=== PATIENT | female | born 1940 | race Caucasian/White ===

== ENCOUNTER → 2016-09-14 | Outpatient (CLI) | payer MEDICARE ==
[2014-10-15 05:30] VITALS: BP 113/60
[~2016-09-14] MED LIST: ACET325T9 PO; ASPI-252 PO; CELE200C PO; FERR325T58 PO; HYDR-2762 PO; IBUP-1060 PO
--- NOTE | 2016-09-14 17:03 | KCIC ---
PROCEDURE Chest, two views. HISTORY Cough. FINDINGS Frontal and lateral views of the chest are obtained. There is no infiltrate, effusion or pneumothorax. The heart is normal in size. There is a reverse right shoulder arthroplasty. There are degenerative changes involving the left shoulder with decreased subacromial space in suspected joint loose bodies. IMPRESSION No acute pulmonary finding. Electronically signed by: Kiki Schultz (Sep 14, 2016 17:01:01)
== END | disposition home or self-care (01) ==
LOC: KCIC 14:33
PROVIDERS: ATTEND Physician Assistant
DX: R05 Cough (principal); Z87.891 Personal history of nicotine dependence
CPT/HCPCS: 71020

== ENCOUNTER 2016-10-08 11:01 | Inpatient (IN) | payer MEDICARE ==
[2016-10-08] VITALS (10 sets, daily range): BP systolic 98–144; BP diastolic 42–72
[~2016-10-08] VITALS: Ht 170.2 cm; Wt 80.7 kg
[2016-10-08] MEDS ORDERED: FENTANYL PF 100 MCG/2 ML VIAL. ONE ×2 (11:27→15:33)
[2016-10-08] MEDS ORDERED: FENTANYL PF 100 MCG/2 ML VIAL. IV ONE ×2 (11:30→12:45)
[2016-10-08 12:01] LABS: BASO # 0.1 x10^3/uL (0.0-0.2); BASO % 1 % (0-3); EOS % 1 % (0-3); HEMATOCRIT 36.2 % (36.0-47.0); HEMOGLOBIN 11.9 g/dL (12.0-15.5); LYMPH # 1.3 x10^3/uL (1.0-4.8); LYMPH % 12 % (24-48); MEAN CORPUSCULAR HEMOGLOBIN 29 pg (25-35); MEAN CORPUSCULAR HGB CONC 33 g/dL (31-37); MEAN CORPUSCULAR VOLUME 87 fL (79-100); MONO % 5 % (0-9); NEUT % 82 % (31-73); PLATELET COUNT 321 x10^3/uL (140-400); RED BLOOD COUNT 4.16 x10^6/uL (3.50-5.40); RED CELL DISTRIBUTION WIDTH 14.9 % (11.5-14.5); WHITE BLOOD COUNT 11.3 x10^3/uL (4.0-11.0)
[2016-10-08] MEDS: FENTANYL PF 100 MCG/2 ML VIAL. IV PRN ×2 (12:05→14:37)
[2016-10-08 12:12] LABS: CALCIUM 9.3 mg/dL (8.5-10.1); CREATININE 0.7 mg/dL (0.6-1.0); GFR 81.6
[2016-10-08 12:18] LABS: ALBUMIN 3.9 g/dL (3.4-5.0); ALBUMIN/GLOBULIN RATIO 1.1 (1.0-1.7); TOTAL BILIRUBIN 0.2 mg/dL (0.2-1.0); TOTAL PROTEIN 7.5 g/dL (6.4-8.2)
--- NOTE | 2016-10-08 12:26 | RAD ---
EXAM: Right hip, 2 views. HISTORY: Dislocation. COMPARISON: 11/30/2015. FINDINGS: A frontal view of the pelvis and lateral view the right hip are obtained. There is a superior right hip arthroplasty dislocation. No periprosthetic fracture is seen. There is a left hip arthroplasty in expected position. There is degenerative change at the lumbosacral junction. IMPRESSION: Right hip arthroplasty dislocation.
[2016-10-08] MEDS ORDERED: MIDAZOLAM HCL/PF 5 MG/5 ML VIAL. IV ONE (12:45)
--- NOTE | 2016-10-08 12:46 | PHYS DOC ---
Past Medical History Past Medical History: Other Past Surgical History: Hip Replacement, Other Additional Past Surgical Histo: R shoulder, bilat hip Adult General Chief Complaint Chief Complaint: HIP dislocation HPI HPI Patient is a 75 year old female brought by EMS from home with the complaint of right hip dislocation. Patient has a prosthetic right hip since 2009 and states that she has had repeated hip dislocations. She did not have a fall, she just stood up. Patient had her original surgery in 2009, a few weeks later shE bent over and had hip dislocation, shortly after that, a repeat dislocation from standing up from a sitting position. Then she went 5 years without a hip dislocation, had last one in November 2015, and believes that her hip is again dislocated today. The last time she had a hip dislocation she was in [facility]. She wore the brace that had been previously supplied to her for 3 months after that dislocation, and has been doing well for several months now. Orthopedic surgeon Dr. Rivera Review of Systems Review of Systems Constitutional: Denies fever or chills [] Eyes: Denies change in visual acuity, redness, or eye pain [] HENT: Denies nasal congestion or sore throat [] Respiratory: Denies cough or shortness of breath [] Cardiovascular: Denies chest pain GI: Denies abdominal pain, nausea, vomiting, bloody stools or diarrhea [] : Denies dysuria or hematuria [] Musculoskeletal: As in history of present illness Integument: Denies rash or skin lesions [] Neurologic: Denies headache, focal weakness or sensory changes [] Current Medications Current Medications Current Medications Medications (Trade) Dose Ordered Sig/Sudhir Start Time Stop Time Status Last Admin Dose Admin Fentanyl Citrate (Fentanyl 2ml Vial) 100 mcg 1X ONCE 10/08/16 12:45 10/08/16 12:46 DC 10/08/16 12:55 100 MCG Midazolam HCl 5 mg 5 mg 1X ONCE 10/08/16 12:45 10/08/16 12:46 DC 10/08/16 12:58 5 MG Propofol (Diprivan) 0 ml @ As Directed STK-MED ONCE 10/08/16 13:22 10/08/16 13:23 DC Allergies Allergies Allergies Coded Allergies Type Severity Reaction Last Updated Verified No Known Drug Allergies 10/15/14 No Physical Exam Physical Exam Constitutional: Well developed, well nourished, no acute distress, non-toxic appearance. Alert, mentating normally. HENT: Normocephalic, bilateral external ears normal, oropharynx moist, no oral exudates, nose normal. [] Eyes: conjunctiva normal, no discharge. [] Neck: Normal range of motion, no stridor. [] Cardiovascular:Heart rate regular rhythm, no murmur [] Lungs & Thorax: Bilateral breath sounds clear to auscultation [] Abdomen: soft, no tenderness, no masses, no pulsatile masses. [] Skin: Warm, dry, no erythema, no rash. [] Extremities: Upper extremities unremarkable. Right lower extremity shortened with deformity at the level of the hip. Neurologic: Alert and oriented X 3, normal motor function, normal sensory function, no focal deficits noted. [] Current Patient Data Vital Signs Vital Signs Date Time Temp Pulse Resp B/P Pulse Ox O2 Delivery O2 Flow Rate FiO2 10/08/16 12:55 18 100 Nasal Cannula 8.0 10/08/16 11:10 98.0 87 206/86 98.0 Lab Values Laboratory Tests Test 10/08/16 11:15 White Blood Count 11.3x10^3/uL (4.0-11.0) H Red Blood Count 4.16x10^6/uL (3.50-5.40) Hemoglobin 11.9g/dL (12.0-15.5) L Hematocrit 36.2% (36.0-47.0) Mean Corpuscular Volume 87fL (79-100) Mean Corpuscular Hemoglobin 29pg (25-35) Mean Corpuscular Hemoglobin Concent 33g/dL (31-37) Red Cell Distribution Width 14.9% (11.5-14.5) H Platelet Count 321x10^3/uL (140-400) Neutrophils (%) (Auto) 82% (31-73) H Lymphocytes (%) (Auto) 12% (24-48) L Monocytes (%) (Auto) 5% (0-9) Eosinophils (%) (Auto) 1% (0-3) Basophils (%) (Auto) 1% (0-3) Neutrophils # (Auto) 9.2x10^3uL (1.8-7.7) H Lymphocytes # (Auto) 1.3x10^3/uL (1.0-4.8) Monocytes # (Auto) 0.6x10^3/uL (0.0-1.1) Eosinophils # (Auto) 0.1x10^3/uL (0.0-0.7) Basophils # (Auto) 0.1x10^3/uL (0.0-0.2) Sodium Level 140mmol/L (136-145) Potassium Level 4.0mmol/L (3.5-5.1) Chloride Level 105mmol/L (98-107) Carbon Dioxide Level 27mmol/L (21-32) Anion Gap 8 (6-14) Blood Urea Nitrogen 17mg/dL (7-20) Creatinine 0.7mg/dL (0.6-1.0) Estimated GFR (Cockcroft-Gault) 81.6 BUN/Creatinine Ratio 24 (6-20) H Glucose Level 121mg/dL (70-99) H Calcium Level 9.3mg/dL (8.5-10.1) Total Bilirubin 0.2mg/dL (0.2-1.0) Aspartate Amino Transferase (AST) 15U/L (15-37) Alanine Aminotransferase (ALT) 22U/L (14-59) Alkaline Phosphatase 58U/L (46-116) Total Protein 7.5g/dL (6.4-8.2) Albumin 3.9g/dL (3.4-5.0) Albumin/Globulin Ratio 1.1 (1.0-1.7) Laboratory Tests 10/08/16 11:15 Laboratory Tests 10/08/16 11:15 EKG EKG [] Radiology/Procedures Radiology/Procedures Two-view x-ray of the right hip and AP pelvis read by me. Superior dislocation of the right hip total joint. Procedure: Closed reduction right hip I explained the plan to the patient for IV sedation and attempted closed reduction of the right hip, she consented. Time out was done. IV fentanyl and IV Versed was given. The patient was monitored appropriately. She was deeply sedated and did require some assistance with bag valve mask for part of the procedure. Dr. Francois was in the room at bedside and performing airway management while I attempted reduction. My attempt was unsuccessful so he and I traded positions and I managed the patient's airway while he attempted reduction. We were questioning whether there may have been a click so x-rays were repeated but the repeat films show persistent superior dislocation of the prosthetic hip joint. [] Course & Med Decision Making Course & Med Decision Making Pertinent Labs and Imaging studies reviewed. (See chart for details) 75-year-old female presents to the ED with a dislocation of the right hip prosthesis. This is the fourth time this has happened. Patient was medicated for pain with fentanyl with good result. I discussed with the patient and her that we will use IV medication to sedate her and while monitoring her, perform an attempted reduction of her right hip joint and patient is agreeable to the plan. Emergency department attempt at closed reduction under procedural sedation was unsuccessful. I paged Dr. Rivera, the patient's orthopedic physician. There was a delay reaching him due to a malfunction with his phone. When I did reach him, he will be coming in to take the patient to the operating room for reduction of her dislocation. I discussed the case with Dr. Jeevan Vicente, the patient's primary care doctor, who will admit the patient. I wrote bridge orders. [] Dragon Disclaimer Dragon Disclaimer This electronic medical record was generated, in whole or in part, using a voice recognition dictation system. Departure Departure Impression: Primary Impression: Dislocation of internal right hip prosthesis, initial encounter Disposition: ADMITTED INPATIENT Admitting Physician: Jeevan Vicente Condition: STABLE Referrals: JEEVAN VICENTE MD (PCP) IJEOMA BAUER MD Oct 08, 2016 12:46
[2016-10-08] MEDS ORDERED: PROPOFOL 0 ML IV ONE (13:22)
--- NOTE | 2016-10-08 13:29 | RAD ---
EXAM: Right hip, single view. HISTORY: Hip dislocation reduction. COMPARISON: 10/08/2016. FINDINGS: A frontal view of the right hip is obtained. There is persistent superior right hip arthroplasty dislocation. No periprosthetic fracture is seen. IMPRESSION: Right hip arthroplasty dislocation , not appreciably changed compared to the prior study.
[2016-10-08] MEDS ORDERED: FENTANYL PF 100 MCG/2 ML VIAL. IV PRN ×3 (14:00→15:30)
[2016-10-08] MEDS ORDERED: BACL10TA PO (15:11)
[2016-10-08] MEDS ORDERED: AMOX1TAB10 PO (15:11)
[2016-10-08] MEDS ORDERED: FLUT9.9S NS (15:11)
[2016-10-08] MEDS ORDERED: IBUP-1060 PO (15:11)
[2016-10-08] MEDS ORDERED: IV RINGERS,LACTATED 1000ML 1,000 ML IV SCH (15:29)
[2016-10-08] MEDS ORDERED: HYDROMORPHONE 2 MG/ML VIAL. IV PRN (15:30)
[2016-10-08] MEDS ORDERED: LIDOCAINE 1% 1 ML SYRINGE. ID PRN (15:30)
[2016-10-08] MEDS ORDERED: ONDANSETRON PF 4 MG/2 ML VIAL. IV PRN (15:30)
[2016-10-08] MEDS ORDERED: PROCHLORPERAZINE 10 MG/2 ML VIAL. IV PRN (15:30)
[2016-10-08] MEDS ORDERED: LIDOCAINE 2% 100 MG/5 ML SYRINGE. ONE (15:33)
[2016-10-08] MEDS ORDERED: ONDANSETRON PF 4 MG/2 ML VIAL. ONE (15:33)
[2016-10-08] MEDS ORDERED: PROPOFOL 20 ML IV ONE (15:33)
--- NOTE | 2016-10-08 16:01 | PDOC ---
BRIEF OPERATIVE NOTE Date: Oct 08, 2016 Pre-Op Diagnosis right hip dislocation Post-Op Diagnosis same Procedure Performed closed reduction right total hip dislocation Surgeon Nicole Anesthesiologist Glenys Anesthesia Type: General Blood Loss none Complications none GIA QUINTANILLA MD Oct 08, 2016 16:01
--- NOTE | 2016-10-08 18:46 | ACF ---
Admission Forms Criteria MUSCULOSKELETAL DISEASE GRG Clinical Indications for Admission to Inpatient Care (Place 'X' for any and all applicable criteria): Hospital admission is needed for appropriate care of the patient because of ANY ONE of the following: [X]I. Fracture, dislocation, or other musculoskeletal injury requiring inpatient care(medical) as indicated by ANY ONE of the following(4)(5)(6)(7) [ ]a) Vertebral fracture requiring observation for instability or neurologic compromise (8) [ ]b) Compartment syndrome (proven or cannot be ruled out during observation level of care) (9) [ ]c) Limb-threatening injury [X]d) Major injury requiring inpatient stabilization such as traction initiation or external fixation before internal fixation or closure of complex or open fracture [ ]e) Major injury requiring inpatient treatment after emergency or observation level care (as appropriate) [ ]f) Severe pain requiring acute inpatient management [ ]II. Newly diagnosed or suspected bone, joint, or orthopedic device infection (e.g., osteomyelitis, septic arthritis) needing ANY ONE of the following(1)(2)(3) [ ]a) IV antibiotics that cannot be initiated in other than inpatient setting (e.g., patient too unstable or home infusion not available) [ ]b) Device removal or replacement [ ]c) Bone or soft tissue debridement [ ]d) Joint drainage (drain placement or repetitive aspirations) [ ]III. Severe rheumatologic disease (e.g., systemic lupus erythematosus, rheumatoid arthritis) with complications or comorbidities (Also use Optimal Recovery Care Criteria or General Recovery Criteria as appropriate on the basis of predominant condition), including ANY ONE of the following(10 )(11)(12)(13) [ ]a) Severe infection (e.g., HUMAN RESOURCE OFFICER infection, sepsis) (14) [ ]b) Respiratory complications, including ANY ONE of the following: [ ]i) Pleural effusion with respiratory compromise [ ]ii) Pulmonary hypertension with congestive failure [ ]iii) Respiratory failure [ ]iv) Pulmonary hemorrhage (15) [ ]c) Hematologic disease, including ANY ONE of the following: [ ]i) Coagulopathy with bleeding [ ]ii) Thrombosis with hypercoagulable state [ ]iii) Thrombotic thrombocytopenic purpura [ ]d) Cerebritis with seizures, psychosis, or other severe abnormalities [ ]e) Vertebral destruction with monitoring needed for cervical myelopathy& possible respiratory compromise [ ]f) Exacerbation that requires inpatient treatment (e.g., intravenous immunosuppression) (16) [ ]g) Acute renal failure [ ]IV. Severe vasculitis with complications or comorbidities (Also use Optimal Recovery Care Criteria or General Recovery Criteria as appropriate on the basis of predominant condition), including ANY ONE of the following(11)(12)(17)(18)(19)(20) [ ]a) HUMAN RESOURCE OFFICER vasculitis with seizures, psychosis, or other severe abnormalities (22) [ ]b) Renal failure (16) [ ]c) Pulmonary hemorrhage (15) [ ]d) Cerebral infarction [ ]e) Gastrointestinal ischemia [ ]f) Gangrene or threatened amputation [ ]g) Exacerbation that requires inpatient treatment (e.g., intravenous immunosuppression) (19)(21) [ ]V. Severe myopathy as indicated by ANY ONE of the following (28)(29) [ ]a) New onset of airway compromise or inability to swallow [ ]b) Respiratory deterioration with observation needed for impending respiratory failure [ ]c) Exacerbation that requires inpatient treatment (e.g., intravenous immunosuppression) [ ]. Severe gout (crystal arthropathy) as indicated by ANY ONE of the following (23)(24) [ ]a) Severe pain requiring acute inpatient management [ ]b) Exacerbation that requires inpatient treatment (e.g., intravenous treatment) [ ]VII.Rhabdomyolysis and ANY ONE of the following (25)(26)(27) [ ]a) Acute renal failure [ ]b) Need for intravenous hydration after emergency or observation level care (as appropriate) [ ]c) Inability to maintain oral hydration [ ]d) Change in mental status [ ]e) Electrolyte abnormality that remains after emergency or observation level care (as appropriate) [ ]VIII Post amputation complication, as indicated by ANY ONE of the following [ ]a) Infection [ ]b) Dehiscence [ ]c) Myodesis failure [ ]IX. Severe pain requiring acute inpatient management as indicated by ALL of the following (30)(31)(32) [ ]a) Continuous or frequent (e.g., every 2 to 4 hrs) parenteral analgesics required [A] [ ]b) Rapid improvement expected from treatment or acute intervention ( e.g., surgery, anesthesia procedure[B] [ ]X. Musculoskeletal Disease and ALL of the following: [ ]a) Symptom or finding for which emergency and observation care have failed or are not considered appropriate (Use General Criteria: Observation Care as appropriate) [ ]b) Presence of ANY ONE of the following [ ]i) A General Admission Criteria [ ]ii) A Pediatric General Admission Criteria The original [facility] content created by [facility] has been revised. The portions of the content which have been revised are identified through the use of italic text or in bold, and [facility] has neither reviewed nor approved the modified material. All other unmodified content is copyright [facility]. Please see references footnoted in the original [facility] edition 2016 Admission Criteria Met?: Yes MIKE ROY Oct 08, 2016 18:46
[2016-10-08] MEDS ORDERED: IBUPROFEN 800 MG TABLET. PO PRN (19:00)
[2016-10-08] MEDS: MORPHINE SULFATE 2 MG/ML DISP.SYRIN. IV PRN (20:35)
[2016-10-08] MEDS: BACLOFEN 10 MG TABLET. PO SCH (20:36)
[2016-10-08] MEDS: AMOXICILLIN/K CLAV 500/125MG TABLET. PO SCH (20:36)
--- NOTE | 2016-10-09 06:12 | CONS ---
DATE OF CONSULTATION: 10/08/2016 REQUESTING: [facility] request. REASON FOR CONSULTATION: Right hip dislocation. HISTORY OF PRESENT ILLNESS: The patient had a right hip arthroplasty done in 2009, I think by Dr. Oconnell, who has had repeated hip dislocations. She had had a couple of dislocations the year of her replacement really not since about 2015 when I think I assisted in the procedure to relocate her hip and now states that she was just standing up from a seated position and had done a brace following her last dislocation. PAST MEDICAL HISTORY: Really denies any significant past medical history. PAST SURGICAL HISTORY: Significant for bilateral hip surgeries and a right shoulder surgery. ALLERGIES: She has no known drug allergies. MEDICATIONS: List is reviewed. REVIEW OF SYSTEMS: Negative for any chest pain, shortness of breath, radiating pain, numbness, tingling, focal weakness, fever, chills, constitutional symptoms, recent weight gain or loss. No abdominal pain, chest pain, visual changes, headache or skin lesions. SOCIAL HISTORY: She getting up and around well. Denies tobacco, alcohol or drug use. PHYSICAL EXAMINATION: VITAL SIGNS: Temperature 98.0, pulse 87, respirations 18, blood pressure was 206/86 secondary to her pain, and 100% on 8 liters nasal cannula in the Emergency Room. HEENT: Atraumatic, normocephalic. HEART: Regular rate and rhythm. LUNGS: Clear to auscultation bilaterally. ABDOMEN: Benign. MUSCULOSKELETAL: Examination of the right hip reveals shortened rotated hip with pain on any attempted motion. She has normal examination of the contralateral hip, bilateral knees and ankles with intact motor function, distal pulses, sensation, reflexes and skin in both lower extremities throughout. IMAGING: X-rays reveal a superior hip dislocation of a prosthetic right hip, but otherwise well fixed components. IMPRESSION: Right hip arthroplasty dislocation. TREATMENT PLAN: She actually had attempted a closed reduction in the Emergency Department under sedation, which failed and she was admitted secondary to pain. She is could not be taken to the operating room, now operating room personnel available and she understands the closed reduction procedure, possibility that she has repeated dislocations or wants more definitive treatment, we would have to proceed at some point with open reduction possibly conversion to a constrained total hip arthroplasty. GIA QUINTANILLA MD DR: EDIE/codey JOB#: [id number] / [id number]
[2016-10-09] MEDS: MORPHINE SULFATE 2 MG/ML DISP.SYRIN. IV PRN (06:22)
[2016-10-09 07:00] VITALS: BP 104/54
--- NOTE | 2016-10-09 08:25 | RAD ---
EXAM: Right hip, single view. HISTORY: Closed reduction. COMPARISON: 10/08/2016. FINDINGS: A frontal view of the right hip is obtained. There is a right hip arthroplasty in expected position. IMPRESSION: Closed reduction of the right hip arthroplasty into normal alignment.
[2016-10-09] MEDS: AMOXICILLIN/K CLAV 500/125MG TABLET. PO SCH ×3 (08:46→21:56)
[2016-10-09] MEDS: FLUTICASONE 50MCG/NASAL SPRAY 16GM BOTTLE. NS SCH (08:46)
[2016-10-09] MEDS: BACLOFEN 10 MG TABLET. PO SCH ×2 (08:54→21:56)
--- NOTE | 2016-10-09 10:34 | PDOC ---
GENERAL General: see dictated H&P. Problems: VITAL SIGNS Vital Signs: Vital Signs Date Time Temp Pulse Resp B/P Pulse Ox O2 Delivery O2 Flow Rate FiO2 10/09/16 08:00 Room Air 10/09/16 07:00 98.5 75 18 104/54 93 98.5 10/08/16 16:01 10 I & O I & O Intake and Output 10/09/16 06:59 Intake Total 1950 ml Output Total 2750 ml Balance -800 ml Intake Oral 1100 ml IV Total 850 ml Output Urine Total 2750 ml Estimated Blood Loss 0 ml ALLERGIES Allergies: Allergies Coded Allergies Type Severity Reaction Last Updated Verified No Known Drug Allergies 10/15/14 No MEDS Medications: Current Medications Medications (Trade) Dose Ordered Sig/Sudhir Start Time Stop Time Status Last Admin Dose Admin Amoxicillin/ Clavulanate Potassium (Augmentin 500/ 125mg) 1 tab TID 10/08/16 21:00 10/09/16 08:46 1 TAB Baclofen (Lioresal) 10 mg BID 10/08/16 21:00 10/09/16 08:54 10 MG Fentanyl Citrate (Fentanyl 2ml Vial) 100 mcg STK-MED ONCE 10/08/16 15:33 10/08/16 15:34 DC Fluticasone Propionate (Flonase) 2 spray DAILY 10/09/16 09:00 Hydromorphone HCl (Dilaudid) 0.5 mg PRN Q10MIN PRN 10/08/16 15:30 10/09/16 15:29 Ibuprofen (Motrin) 800 mg PRN Q8HRS PRN 10/08/16 19:00 Lactated Ringer's (Iv Lactated Ringers) 1,000 ml @ 0 mls/hr Q0M 10/08/16 15:29 10/09/16 03:28 DC Lidocaine HCl (Lidocaine HCl 2% Abboject) 100 mg STK-MED ONCE 10/08/16 15:33 10/08/16 15:34 DC Midazolam HCl (Versed) 5 mg 1X ONCE 10/08/16 12:45 10/08/16 12:46 DC 10/08/16 12:58 5 MG Morphine Sulfate 1 mg 1 mg PRN Q10MIN PRN 10/08/16 15:30 10/09/16 15:29 10/09/16 06:22 1 MG Ondansetron HCl (Zofran) 4 mg STK-MED ONCE 10/08/16 15:33 10/08/16 15:34 DC Prochlorperazine Edisylate 5 mg 5 mg PACU PRN PRN 10/08/16 15:30 10/09/16 15:29 Propofol (Diprivan) 20 ml @ As Directed STK-MED ONCE 10/08/16 15:33 10/08/16 15:34 DC LAB Lab: Laboratory Tests Test 10/08/16 11:15 White Blood Count 11.3x10^3/uL (4.0-11.0) Red Blood Count 4.16x10^6/uL (3.50-5.40) Hemoglobin 11.9g/dL (12.0-15.5) Hematocrit 36.2% (36.0-47.0) Mean Corpuscular Volume 87fL (79-100) Mean Corpuscular Hemoglobin 29pg (25-35) Mean Corpuscular Hemoglobin Concent 33g/dL (31-37) Red Cell Distribution Width 14.9% (11.5-14.5) Platelet Count 321x10^3/uL (140-400) Neutrophils (%) (Auto) 82% (31-73) Lymphocytes (%) (Auto) 12% (24-48) Monocytes (%) (Auto) 5% (0-9) Eosinophils (%) (Auto) 1% (0-3) Basophils (%) (Auto) 1% (0-3) Neutrophils # (Auto) 9.2x10^3uL (1.8-7.7) Lymphocytes # (Auto) 1.3x10^3/uL (1.0-4.8) Monocytes # (Auto) 0.6x10^3/uL (0.0-1.1) Eosinophils # (Auto) 0.1x10^3/uL (0.0-0.7) Basophils # (Auto) 0.1x10^3/uL (0.0-0.2) Sodium Level 140mmol/L (136-145) Potassium Level 4.0mmol/L (3.5-5.1) Chloride Level 105mmol/L (98-107) Carbon Dioxide Level 27mmol/L (21-32) Anion Gap 8 (6-14) Blood Urea Nitrogen 17mg/dL (7-20) Creatinine 0.7mg/dL (0.6-1.0) Estimated GFR (Cockcroft-Gault) 81.6 BUN/Creatinine Ratio 24 (6-20) Glucose Level 121mg/dL (70-99) Calcium Level 9.3mg/dL (8.5-10.1) Total Bilirubin 0.2mg/dL (0.2-1.0) Aspartate Amino Transf (AST/SGOT) 15U/L (15-37) Alanine Aminotransferase (ALT/SGPT) 22U/L (14-59) Alkaline Phosphatase 58U/L (46-116) Total Protein 7.5g/dL (6.4-8.2) Albumin 3.9g/dL (3.4-5.0) Albumin/Globulin Ratio 1.1 (1.0-1.7) TEDDY HURST MD Oct 09, 2016 10:34
[2016-10-09 10:56] VITALS: BP 130/58
--- NOTE | 2016-10-09 13:22 | HP ---
ADMIT DATE: 10/08/2016 CHIEF COMPLAINT AND HISTORY OF PRESENT ILLNESS: This is a 75-year-old white female who was bending over to pick something up on the floor on the day of admission in her home when she dislocated her right hip. She was down for at least an hour and half on the floor before her got home to take care of her. She was done this several times since right hip replacement back [place] [address] Oconnell. Her last time was back several months ago on a trip to [place], [place], when she was stepping up on a bus with her right leg and dislocated. She wore brace for several months following that at that point in time and has not had any significant problems with that since other than she did strain her right knee last fall and has had some pain in the right groin since that point in time, which she attributes to the strained knee. She was seen in the Emergency Room with unsuccessful relocation, taken to surgery by Dr. Rivera where the hip has been relocated. PAST MEDICAL HISTORY: Remarkable for bilateral hip replacements and right shoulder surgery. MEDICATIONS: Brought with the patient, listed on the computer and have been addressed. ALLERGIES: She has no known drug allergies. SOCIAL HISTORY AND FAMILY HISTORY: Noncontributory. REVIEW OF SYSTEMS: As mentioned above. PHYSICAL EXAMINATION: GENERAL: She is a well-developed, well-nourished white female, in no acute distress, in bed. She is very concerned about the recurrent hip dislocation and wonders what could be done to prevent any further other than bracing, which she has done on several times. VITAL SIGNS: Stable. She is afebrile. HEENT: Unremarkable. NECK: Supple without adenopathy or thyromegaly. CHEST: Clear to auscultation and percussion. HEART: Regular rate and rhythm without S3, S4, murmur. ABDOMEN: Soft, nontender, without hepatosplenomegaly or masses. EXTREMITIES: Without cyanosis, clubbing or edema. NEUROLOGIC: She is intact. IMPRESSION: Recurrent hip dislocations on the right, currently relocated. PLAN: The patient has been admitted. Further plans will be for Ortho regarding some sort of revision surgery versus bracing and I would anticipate her stay will be only a couple of night. TEDDY HURST MD DR: Akin JOB#: [id number] / [id number]
[2016-10-09 15:00] VITALS: BP 123/59
--- NOTE | 2016-10-09 15:02 | OP ---
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 PROCEDURE: Closed reduction, right total hip dislocation. SURGEON: Eduardo Rivera M.D. ANESTHESIA: General LMA. COMPLICATIONS: None. OPERATIVE INDICATIONS: The patient is a 75-year-old female that had a total hip arthroplasty done by Dr. Oconnell in 2009, apparently had two dislocations that year and not again until about 2015. I performed the previous closed reduction on her and she wore hip brace for about 3 months and reported she bent over to pick something up and had the hip go out again. I had gone over with her the risks, benefits, postoperative course, anesthesia for the planned closed reduction procedure. I told her that this would really do nothing to fix her ongoing problem that she would either have to more strictly undergo the hip precautions or potentially if she wants a definitive solution we would have to do an open surgery with a constrained total hip arthroplasty. She wants to proceed with the closed reduction procedure. DESCRIPTION OF PROCEDURE: After informed consent was obtained and adequate amounts of general LMA anesthesia were administered, closed reduction maneuver was performed using traction, countertraction. Hip went smoothly back into place, leg lengths were equal and postop x-ray confirmed adequate reduction. She was returned to recovery room in stable condition, having tolerated the procedure well. EDUARDO RIVERA MD DR: EDIE/codey JOB#: [id number] / [id number] RACH Chatterjee MD
[2016-10-09 19:51] VITALS: BP 114/48
[2016-10-09 23:22] VITALS: BP 110/34
[2016-10-10 03:01] VITALS: BP 100/42
[2016-10-10 07:00] VITALS: BP 129/72
[2016-10-10] MEDS: FLUTICASONE 50MCG/NASAL SPRAY 16GM BOTTLE. NS SCH (08:03)
[2016-10-10] MEDS: AMOXICILLIN/K CLAV 500/125MG TABLET. PO SCH (08:08)
[2016-10-10] MEDS: BACLOFEN 10 MG TABLET. PO SCH (08:08)
--- NOTE | 2016-10-10 08:43 | DISCH ---
DISCHARGE INSTRUCTIONS Condition on Discharge Condition on Discharge: Stable Activity After Discharge Activity Instructions for Disc: No restrictions Diet after Discharge Diet after Discharge: Regular Follow-Up Follow up with: as scheduled RACH VICENTE MD Oct 10, 2016 08:43
--- NOTE | 2016-10-10 08:45 | PDOC ---
Provider Note Provider Note [id number] RACH VICENTE MD Oct 10, 2016 08:45
--- NOTE | 2016-10-10 10:19 | PDOC ---
PROGRESS NOTES Subjective Subjective Problems overnight: Right hip is sore feels better than when it was out of place but she is getting up and around reasonably well feels a bit better in the brace then with the walker and has a lot of questions about her not understanding how the hip would've come out of place based on her just bending over Objective Vital Signs Vital Signs Date Time Temp Pulse Resp B/P Pulse Ox O2 Delivery O2 Flow Rate FiO2 10/10/16 08:00 Room Air 10/10/16 07:00 97.9 93 16 129/72 96 97.9 10/08/16 16:01 10 Physical Exam On exam hip is stable leg lengths are equal distal neurovascular status intact Labs Laboratory Tests Test 10/08/16 11:15 White Blood Count 11.3x10^3/uL (4.0-11.0) Red Blood Count 4.16x10^6/uL (3.50-5.40) Hemoglobin 11.9g/dL (12.0-15.5) Hematocrit 36.2% (36.0-47.0) Mean Corpuscular Volume 87fL (79-100) Mean Corpuscular Hemoglobin 29pg (25-35) Mean Corpuscular Hemoglobin Concent 33g/dL (31-37) Red Cell Distribution Width 14.9% (11.5-14.5) Platelet Count 321x10^3/uL (140-400) Neutrophils (%) (Auto) 82% (31-73) Lymphocytes (%) (Auto) 12% (24-48) Monocytes (%) (Auto) 5% (0-9) Eosinophils (%) (Auto) 1% (0-3) Basophils (%) (Auto) 1% (0-3) Neutrophils # (Auto) 9.2x10^3uL (1.8-7.7) Lymphocytes # (Auto) 1.3x10^3/uL (1.0-4.8) Monocytes # (Auto) 0.6x10^3/uL (0.0-1.1) Eosinophils # (Auto) 0.1x10^3/uL (0.0-0.7) Basophils # (Auto) 0.1x10^3/uL (0.0-0.2) Sodium Level 140mmol/L (136-145) Potassium Level 4.0mmol/L (3.5-5.1) Chloride Level 105mmol/L (98-107) Carbon Dioxide Level 27mmol/L (21-32) Anion Gap 8 (6-14) Blood Urea Nitrogen 17mg/dL (7-20) Creatinine 0.7mg/dL (0.6-1.0) Estimated GFR (Cockcroft-Gault) 81.6 BUN/Creatinine Ratio 24 (6-20) Glucose Level 121mg/dL (70-99) Calcium Level 9.3mg/dL (8.5-10.1) Total Bilirubin 0.2mg/dL (0.2-1.0) Aspartate Amino Transf (AST/SGOT) 15U/L (15-37) Alanine Aminotransferase (ALT/SGPT) 22U/L (14-59) Alkaline Phosphatase 58U/L (46-116) Total Protein 7.5g/dL (6.4-8.2) Albumin 3.9g/dL (3.4-5.0) Albumin/Globulin Ratio 1.1 (1.0-1.7) Imaging Postreduction images show concentric reduction of the hip solidly fixed total hip arthroplasty implants Assessment Assessment POD# [], S/P [closed reduction right hip dislocation] Problems: Plan Plan of Care I had a pretty comprehensive talk with her about her situation. She told me previously that she doesn't want anymore surgery but on the other hand never once the hip to come out again. Summarizing, I basically told her that either she has to give him off a lot more attention to exactly how she moves to not be beyond the hip precaution limits or we may consider a constrained total hip arthroplasty which is a large operation capturing the ball. The downside of that approach is that if she were to have some more traumatic episode like a fall down the stairs car accident that would put a lot of pressure on the hip beyond its range of motion that it wouldn't just go back in and closed means but would have to be done open. Likewise she would have to have some awareness of the end of the allowable motion when the hip stop she would have to stop or risk dislocating even the constrained prosthesis. Ultimately we really need to have her consider whether she wants to have a surgery to more definitively deal with the problem or again have a lot more attention to the hip precautions themselves. All her questions were answered at this point Dr. Garcia is going to discharge her today she will get back in touch with us based on her preferences for the future GIA QUINTANILLA MD Oct 10, 2016 10:19
--- NOTE | 2016-10-10 22:20 | DS ---
DATE OF DISCHARGE: 10/10/2016 HOSPITAL SUMMARY: A 75-year-old white female who came in with spontaneous hip dislocation for about 4 times since it was placed 7 or 8 years ago. CBC and chemistry profile were unremarkable and x-ray showed a dislocation of the right hip and subsequent x-rays showed closed reduction. Closed reduction was attempted in the Emergency Room, but failed and Dr. Rivera had to take her to surgery for general anesthesia and performed closed reduction. She is considering the option of a repeat hip surgery to try to prevent this from reoccurring again and will discuss this with Dr. Rivera both inside and outside the hospital at this point, but she is comfortable to be followed as an outpatient now. FINAL DIAGNOSIS: Recurrent right hip dislocation. COMPLICATIONS: None. PROCEDURES: Hip relocation. CONSULTATIONS: Dr. Rviera. DISPOSITION: Home meds remain the same. Activity as tolerated. Exercise as discussed with Dr. Rivera. Follow up with me on a p.r.n. basis. RACH VICENTE MD DR: HUSSAIN/nts JOB#: [id number] / [id number]
== END 2016-10-10 13:20 | disposition home or self-care (01) | DRG 561 ==
LOC: ER 11:01 → 4 NORTH 13:50
PROVIDERS: ADMIT Family Medicine; ATTEND Family Medicine
PROC: 0SW9XJZ Revision of Synthetic Substitute in Right Hip Joint, External Approach (ICD-10-PCS; principal; 2016-10-08 16:45)
DX: T84.020A Dislocation of internal right hip prosthesis, initial encounter (principal); Y79.2 Prosthetic and other implants, materials and accessory orthopedic devices associated with adverse incidents
CPT/HCPCS: 27265; 36415; 73501; 73502; 80053; 85027; 96374; J2250; J2270; J2405; J2704; J3010; 97116; 99285-25

== ENCOUNTER → 2017-05-01 | Outpatient (CLI) | payer BC, MEDICARE ==
[~2017-05-01] MED LIST changes: +AMOX1TAB10 PO; +BACL10TA PO; +FLUT9.9S NS
[2017-05-01 13:21] LABS: BILIRUBIN,URINE NEGATIVE (NEG); GLUCOSE,URINE NEGATIVE (NEG); NITRITE,URINE NEGATIVE (NEG); PH,URINE 6.5; PROTEIN,URINE NEGATIVE (NEG-TRACE); UROBILINOGEN,URINE 0.2 mg/dL (0.2 mg/dL)
[2017-05-01 13:23] LABS: BASO # 0.1 x10^3/uL (0.0-0.2); BASO % 1 % (0-3); EOS % 3 % (0-3); HEMATOCRIT 33.5 % (36.0-47.0); LYMPH # 3.1 x10^3/uL (1.0-4.8); LYMPH % 37 % (24-48); MEAN CORPUSCULAR HEMOGLOBIN 27 pg (25-35); MEAN CORPUSCULAR HGB CONC 33 g/dL (31-37); MEAN CORPUSCULAR VOLUME 84 fL (79-100); MONO % 6 % (0-9); NEUT % 54 % (31-73); PLATELET COUNT 361 x10^3/uL (140-400); RED BLOOD COUNT 4.01 x10^6/uL (3.50-5.40); RED CELL DISTRIBUTION WIDTH 14.9 % (11.5-14.5); WHITE BLOOD COUNT 8.5 x10^3/uL (4.0-11.0)
[2017-05-01 13:28] LABS: SQUAMOUS EPITHELIAL CELL,UR FEW /LPF
[2017-05-01 13:29] LABS: BACTERIA,URINE 0 /HPF (0-FEW); RBC,URINE OCC /HPF (0-2); WBC,URINE OCC /HPF (0-4)
[2017-05-01 13:30] LABS: ALBUMIN 3.7 g/dL (3.4-5.0); CALCIUM 9.2 mg/dL (8.5-10.1); CREATININE 0.8 mg/dL (0.6-1.0); GFR 69.7; POTASSIUM 3.6 mmol/L (3.5-5.1)
[2017-05-01 13:31] LABS: PROTHROMBIN TIME PATIENT 12.3 SEC (11.7-14.0)
== END | disposition home or self-care (01) ==
LOC: SURGPAT 12:09
PROVIDERS: ATTEND Orthopaedic Surgery
DX: Z01.818 Encounter for other preprocedural examination (principal); M25.531 Pain in right wrist; Z96.643 Presence of artificial hip joint, bilateral
CPT/HCPCS: 36415; 80048; 81001; 82040; 85025; 85610; 85651; 85730; 87641

== ENCOUNTER → 2017-05-03 | Outpatient (CLI) | payer BC, MEDICARE ==
--- NOTE | 2017-05-03 11:14 | EKG ---
[facility] [address] [place] [address] Test Date: 2017-05-03 Test Time: 11:18:33 Pat Name: KYLE SHANNON Department: Room: Gender: F [employer]: JAZMIN : 1940 Requested By: GIA QUINTANILLA Order Number: [id number] Reading MD: Osiris Prado Measurements Intervals [place] Rate: 89 P: 4 IL: 170 QRS: 6 QRSD: 68 T: 15 QT: 312 QTc: 380 Interpretive Statements SINUS RHYTHM ARTIFACT OVER THE INFERIOR LEADS OTHERWISE NORMAL EKG Electronically Signed On 05-06-2017 12:15:48 CDT by Osiris Prado
== END | disposition home or self-care (01) ==
LOC: EKG 11:01
PROVIDERS: ATTEND Orthopaedic Surgery
DX: Z01.818 Encounter for other preprocedural examination (principal); M25.531 Pain in right wrist; Z96.643 Presence of artificial hip joint, bilateral
CPT/HCPCS: 93005

== ENCOUNTER → 2018-02-06 | Outpatient (CLI) | payer BC ==
[~2018-02-06] MED LIST changes: -ACET325T9 PO; -AMOX1TAB10 PO; -ASPI-252 PO; -BACL10TA PO; +BUPIVACAINE MPF 0.25% 10 ML VIAL.; -CELE200C PO; -FERR325T58 PO; -FLUT9.9S NS; -HYDR-2762 PO; -IBUP-1060 PO; +IOHEXOL 180 MG/ML 10 ML VIAL.; +LIDOCAINE 2% PF 2ML VIAL.; +methylPREDNISolone ACETATE 80 MG/ML VIAL.
== END | disposition home or self-care (01) ==
LOC: PNCL 13:06
DX: M46.1 Sacroiliitis, not elsewhere classified (principal); F17.210 Nicotine dependence, cigarettes, uncomplicated; Z90.710 Acquired absence of both cervix and uterus; Z96.643 Presence of artificial hip joint, bilateral; Z96.611 Presence of right artificial shoulder joint; Z98.890 Other specified postprocedural states; Z79.899 Other long term (current) drug therapy; Z72.89 Other problems related to lifestyle; Z98.42 Cataract extraction status, left eye; Z98.41 Cataract extraction status, right eye; Z96.1 Presence of intraocular lens; K21.9 Gastro-esophageal reflux disease without esophagitis; M19.012 Primary osteoarthritis, left shoulder; M19.011 Primary osteoarthritis, right shoulder; D64.9 Anemia, unspecified; Z82.49 Family history of ischemic heart disease and other diseases of the circulatory system; G47.30 Sleep apnea, unspecified
CPT/HCPCS: G0260; J1040; J2001; J3490; Q9965

== ENCOUNTER → 2018-05-29 | Outpatient (CLI) | payer BC ==
[2017-05-18 06:35] VITALS: BP 117/61
[~2018-05-29] MED LIST changes: +ACET325T9 PO; +AMOX1TAB10 PO; +ASPI-252 PO; +BACL10TA PO; -BUPIVACAINE MPF 0.25% 10 ML VIAL.; +CELE200C PO; +FERR325T58 PO; +FLUT9.9S NS; +HYDR-2762 PO; +IBUP-1060 PO; -IOHEXOL 180 MG/ML 10 ML VIAL.; -LIDOCAINE 2% PF 2ML VIAL.; -methylPREDNISolone ACETATE 80 MG/ML VIAL.
--- NOTE | 2018-05-29 16:33 | KCIC ---
Bilateral digital screening mammograms with 3-D tomosynthesis: Reason for examination: Routine screening. Comparison is made to previous studies dated 09/22/2015 and 09/20/2013. Bilateral mammograms in CC and oblique projections were obtained with 2-D imaging and 3-D tomosynthesis imaging on a Siemens Inspiration unit and reviewed on the workstation. Interpretation was made with the benefit of CAD. The skin and nipples show no abnormalities. No abnormal axillary lymph nodes are seen. The breast parenchyma shows scattered fatty and fibroglandular density. (Breast density: Category B.) There continues to be some nodular asymmetry anteriorly at the 11:00 position of the right breast which is stable. There are no new dominant masses, suspicious calcifications or architectural distortion. Impression: No evidence of malignancy. Recommend routine screening. BI-RAD Category 2: Benign. "Our facility is accredited by the [employer] Mammography Program." This patient's information has been entered into a reminder system for the patient to be notified with the results of her examination and a target date for the next mammogram. Electronically signed by: Nikky Sanderson MD (05/29/2018 4:29 PM) [id number]
--- NOTE | 2018-05-29 17:15 | KCIC ---
Bone Densitometry History: Post menopausal, osteoporosis. Bilateral hip replacements. Findings: Bone Densitometry was performed with dual photon absorption of the lumbar spine left forearm. Lumbar Spine: Bone density is 1.156 g/cm2 for L1-L4. T-score is 1.0. Z-score is 3.5. Compared to prior study of 03/05/2014 the bone mineral density has increased by 5.8%. Left forearm, total: Bone density is 0.501 g/cm2. T-score is -1.2. Z-score is 1.7. Femurs not imaged due to hip replacements. IMPRESSION: 1. Mild osteopenia of the left forearm. 2. Normal bone mineral density of the lumbar spine. World Health Organization definition of osteoporosis and osteopenia for women: normal equals T score at or above -1.0 standard deviations; osteopenia equals T score between -1.0 and -2.5 standard deviations; osteoporosis equals T score at or below -2.5 standard deviations. Electronically signed by: Anshul Martinez MD (05/29/2018 5:11 PM) [id number]
== END | disposition home or self-care (01) ==
LOC: KCIC DEXA 13:34
PROVIDERS: ATTEND Family Medicine
DX: Z12.31 Encounter for screening mammogram for malignant neoplasm of breast (principal); M85.832 Other specified disorders of bone density and structure, left forearm
CPT/HCPCS: 77063; 77067; 77080; 77081

== ENCOUNTER → 2020-04-13 | Outpatient (CLI) | payer BC ==
[2017-05-18 06:35] VITALS: BP 117/61
[~2020-04-13] MED LIST changes: -HYDR-2762 PO; +HYDR-2765 PO
== END | disposition home or self-care (01) ==
LOC: RT 09:53
PROVIDERS: ATTEND Internal Medicine Critical Care Medicine
DX: G47.33 Obstructive sleep apnea (adult) (pediatric) (principal)
CPT/HCPCS: G0399

== ENCOUNTER → 2020-06-01 | Outpatient (CLI) | payer BC ==
[2017-05-18 06:35] VITALS: BP 117/61
--- NOTE | 2020-06-01 13:56 | KCIC ---
INDICATION: Osteoporosis screening. Postmenopausal comparison COMPARISON: 06/28/2018 TECHNIQUE: Bone densitometry was performed through the lumbar spine FINDINGS: Lumbar Spine: BMD: 1.1 T-Score: 0.7 Decreased by 3 percent from prior IMPRESSION: 1. Lumbar spine falls within the normal range. Electronically signed by: Madan Garcia MD (06/01/2020 1:53 PM) [id number]
--- NOTE | 2020-06-01 13:59 | KCIC ---
INDICATION: Osteoporosis screening. Postmenopausal follow-up COMPARISON: 05/29/2018 TECHNIQUE: Bone densitometry was performed through the forearm FINDINGS: Forearm: BMD: 0.5 T-Score: -1.2 Decreased by 2 percent from prior IMPRESSION: Forearm bone mineral density is within the osteopenic range Electronically signed by: Madan Garcia MD (06/01/2020 1:56 PM) [id number]
--- NOTE | 2020-06-01 17:25 | KCIC ---
Bilateral digital screening mammograms and tomosynthesis Reason for examination: Routine screening. Comparison is made to previous study dated May 29, 2018 and priors Routine CC and MLO digital views obtained. Interpretation was made with the benefit of CAD. The skin and nipples show no abnormalities. No abnormal lymph nodes are seen. The breast parenchyma is scattered fibroglandular elements. (Breast density: Category B.) There are no suspicious masses, suspicious calcifications or architectural distortions. Regional asymmetry of the right upper outer breast anterior to mid depth is stable to prior studies, benign. Benign calcifications. Impression: Negative mammogram. Recommend routine screening. BI-RADS Category 2: Benign. "Our facility is accredited by the [employer] Mammography Program." This patient's information has been entered into a reminder system for the patient to be notified with the results of her examination and a target date for the next mammogram. Electronically signed by: Bro Zuleta MD (06/01/2020 5:22 PM) [id number]
== END ==
LOC: KCIC DEXA 12:51
PROVIDERS: ATTEND Family Medicine
DX: Z12.31 Encounter for screening mammogram for malignant neoplasm of breast (principal); Z78.0 Asymptomatic menopausal state; N64.89 Other specified disorders of breast; M85.839 Other specified disorders of bone density and structure, unspecified forearm
CPT/HCPCS: 77063; 77067; 77080; 77081